=== PATIENT | female | born 1960 | race American Indian/Alaskan Native ===

== ENCOUNTER 2021-11-13 13:26 | Emergency (ER) | payer MEDICARE, MEDICAID ==
[2021-11-13 13:59] VITALS: BP 125/90
--- NOTE | 2021-11-13 14:19 | Emergency Department Report ---
ED ENT HPI - General Chief complaint: Headache Stated complaint: HEADACHE Time Seen by Provider: 11/13/21 14:14 Source: patient Mode of arrival: Ambulatory Limitations: No Limitations - History of Present Illness Initial comments: 60-year-old -[place] female presents to the emergency room for 1 month history of intermittent left ear pain that is dull and often will have itchiness. Patient reports intermittent headache dizziness with certain positions. She does admit to having a history of cervical stenosis with hardware. Patient states that the dizziness was sometimes common bile in waves. Patient denies any trauma to her head no change of vision no nausea no vomiting no worst headache of her life. MD complaint: ear pain Onset/Timin -: month(s) Severity scale (0 -10): 3 Consistency: intermittent Worsens with: position - Related Data Previous Rx's Medication Instructions Recorded Last Taken Type Fluticasone Propionate [Flonase] 2 sprays NS QDAY #1 bottle 12/18/14 Unknown Rx Loratadine (Nf) [Claritin] 10 mg PO DAILY #30 tablet 12/18/14 Unknown Rx Promethazine /Codeine 5 ml PO Q6H PRN #150 ml 12/18/14 Unknown Rx [Phenergan/Codeine 6.25-10 mg/5 ml] Sulfamethoxazole/Trimethoprim 1 each PO BID #20 tablet 12/18/14 Unknown Rx [Bactrim Ds] predniSONE [Deltasone] 40 mg PO QDAY #10 tab 12/18/14 Unknown Rx Ibuprofen [Motrin 600 MG tab] 600 mg PO Q8H PRN #30 tablet 11/13/21 Unknown Rx hydrOXYzine HCL [Atarax] 25 mg PO Q6HR PRN #20 tablet 11/13/21 Unknown Rx Allergies Allergy/AdvReac Type Severity Reaction Status Date / Time No Known Allergies Allergy Verified 12/18/14 00:50 ED Dental HPI - General Chief complaint: Headache Stated complaint: HEADACHE Time Seen by Provider: 11/13/21 14:14 Source: patient Mode of arrival: Ambulatory Limitations: No Limitations - Related Data Previous Rx's Medication Instructions Recorded Last Taken Type Fluticasone Propionate [Flonase] 2 sprays NS QDAY #1 bottle 12/18/14 Unknown Rx Loratadine (Nf) [Claritin] 10 mg PO DAILY #30 tablet 12/18/14 Unknown Rx Promethazine /Codeine 5 ml PO Q6H PRN #150 ml 12/18/14 Unknown Rx [Phenergan/Codeine 6.25-10 mg/5 ml] Sulfamethoxazole/Trimethoprim 1 each PO BID #20 tablet 12/18/14 Unknown Rx [Bactrim Ds] predniSONE [Deltasone] 40 mg PO QDAY #10 tab 12/18/14 Unknown Rx Ibuprofen [Motrin 600 MG tab] 600 mg PO Q8H PRN #30 tablet 11/13/21 Unknown Rx hydrOXYzine HCL [Atarax] 25 mg PO Q6HR PRN #20 tablet 11/13/21 Unknown Rx Allergies Allergy/AdvReac Type Severity Reaction Status Date / Time No Known Allergies Allergy Verified 12/18/14 00:50 ED Review of Systems ROS: Stated complaint: HEADACHE Other details as noted in HPI Comment: All other systems reviewed and negative ED Past Medical Hx - Past Medical History Previous Medical History?: Yes Additional medical history: neck injury, Spinal stenosis - Surgical History Past Surgical History?: No - Social History Smoking Status: Never Smoker Substance Use Type: None - Medications Home Medications: Home Medications Medication Instructions Recorded Confirmed Last Taken Type Fluticasone Propionate [Flonase] 2 sprays NS QDAY #1 bottle 12/18/14 Unknown Rx Loratadine (Nf) [Claritin] 10 mg PO DAILY #30 tablet 12/18/14 Unknown Rx Promethazine /Codeine 5 ml PO Q6H PRN #150 ml 12/18/14 Unknown Rx [Phenergan/Codeine 6.25-10 mg/5 ml] Sulfamethoxazole/Trimethoprim 1 each PO BID #20 tablet 12/18/14 Unknown Rx [Bactrim Ds] predniSONE [Deltasone] 40 mg PO QDAY #10 tab 12/18/14 Unknown Rx Ibuprofen [Motrin 600 MG tab] 600 mg PO Q8H PRN #30 tablet 11/13/21 Unknown Rx hydrOXYzine HCL [Atarax] 25 mg PO Q6HR PRN #20 tablet 11/13/21 Unknown Rx ED Physical Exam - General Limitations: No Limitations ED Course Vital Signs 11/13/21 13:57 Temperature 98.2 F Pulse Rate 85 Respiratory 20 Rate Blood Pressure 125/90 [Right] O2 Sat by Pulse 97 Oximetry ED Medical Decision Making - Medical Decision Making 60-year-old -[place] female presents to the emergency room for 1 month history of intermittent left ear pain that is dull and often will have itchiness. Patient reports intermittent headache dizziness with certain positions. She does admit to having a history of cervical stenosis with hardware. Patient states that the dizziness was sometimes common bile in waves. Patient denies any trauma to her head no change of vision no nausea no vomiting no worst headache of her life. Discussed with patient she can try Atarax and ibuprofen. Patient should increase her fluids follow-up with her primary care provider and change attendant. Critical care attestation.: If time is entered above; I have spent that time in minutes in the direct care of this critically ill patient, excluding procedure time. ED Disposition Clinical Impression: Intermittent headache, Left ear pain Disposition: HOME / SELF CARE / HOMELESS Is pt being admited?: No Does the pt Need Aspirin: No Condition: Stable Instructions: Earache, Adult, Pain Without a Known Cause Additional Instructions: Recommend to take medication as prescribed. Increase your fluid intake. Follow-up with the primary care provider and change attendant/market research senior project manager Prescriptions: hydrOXYzine HCL [Atarax] 25 mg PO Q6HR PRN #20 tablet PRN Reason: Itching Ibuprofen [Motrin 600 MG tab] 600 mg PO Q8H PRN #30 tablet PRN Reason: Pain Referrals: ISADORA BACH MD [Referring] - 3-5 Days GARY MOREIRA MD [Staff Physician] - 3-5 Days BROOKE YA MD [Staff Physician] - 3-5 Days Forms: Work/School Release Form(ED) Time of Disposition: 14:22
== END 2021-11-13 14:32 | disposition home or self-care (01) ==
LOC: ED 13:26
DX: H92.02 Otalgia, left ear (principal); R51.9 Headache, unspecified
CPT/HCPCS: 99282